=== PATIENT | male | born 2000 | race Caucasian/White ===

== ENCOUNTER 2019-09-28 00:53 | Emergency (ER) | payer OTHER ==
[~2019-09-28] VITALS: Ht 175.3 cm; Wt 72.6 kg
[2019-09-28] MEDS ORDERED: ALBUTEROL FS 2.5 MG/3 ML VIAL.NEB NEB ONE (01:00)
[2019-09-28] MEDS ORDERED: IPRATROPIUM NEB FS 0.5 MG/2.5 ML AMPUL.NEB NEB ONE (01:00)
[2019-09-28] MEDS ORDERED: IPRATROPIUM NEB FS 0.5 MG/2.5 ML AMPUL.NEB ONE (01:01)
[2019-09-28] MEDS ORDERED: ALBUTEROL FS 2.5 MG/3 ML VIAL.NEB ONE (01:01)
--- NOTE | 2019-09-28 01:04 | NUR ---
PT [id number] FROM HOME FOR ASTHMA EXACERBATION, FELT TIGHT TODAY. WOKE UP WITH SOB. ALBUTEROL WITH NO RELIEF, BREATHING TREATMENT GIVEN PER EMS. PT AAOX4, NO ACUTE DISTRESS NOTED. PT CONNECTED TO CARDAIC MONITOR AND POX
--- NOTE | 2019-09-28 01:05 | NUR ---
CALLED RT FOR BREATHING TREATMENT
[2019-09-28] MEDS ORDERED: DEXAMETHASONE 1 MG TABLET PO ONE (02:00)
[2019-09-28] MEDS ORDERED: DEXAMETHASONE 4 MG TABLET ONE (02:08)
[2019-09-28] MEDS ORDERED: DEXAMETHASONE 1 MG TABLET ONE (02:11)
[2019-09-28 02:18] VITALS: BP 119/87
--- NOTE | 2019-09-28 02:18 | NUR ---
DECADRON 10 MG GIVEN
== END 2019-09-28 02:22 | disposition home or self-care (01) ==
LOC: ER 00:54
DX: J45.901 Unspecified asthma with (acute) exacerbation (principal)
CPT/HCPCS: 94640; 99283; J8540 ×2